=== PATIENT | female | born 1955 | race Caucasian/White ===

== ENCOUNTER → 2016-08-11 | Outpatient (CLI) | payer MEDICAID ==
--- NOTE | 2016-08-11 10:50 | REP ---
LUMBAR SPINE SERIES: Five views. HISTORY: Pain. Injury in a fall 2 days ago. FINDINGS: There is a dextroconvex rotoscoliotic curve in the upper lumbar spine. Associated degenerative disc disease is seen in the lumbar levels most pronounced at L3-4, L2-3 and L1-2. There are some discogenic spurs in the lower thoracic levels. Narrowing and spur formation is seen at the L5-S1 disc level. Lumbar vertebral body heights are preserved. No fracture or collapse is seen. Pedicles and posterior elements are intact. No evidence of spondylolysis or spondylolisthesis is seen. No bony destructive lesion is appreciated. Psoas margins are symmetric. The sacrum and SI joints are intact. IMPRESSION: Degenerative disc disease and dextroconvex lumbar scoliosis. Osteoarthritic facet changes are noted at L5-S1 bilaterally. No traumatic abnormality noted. Signed by Delmer Vaz MD 08/11/2016 12:18 P
--- NOTE | 2016-08-11 10:57 | REP ---
THORACIC SPINE SERIES: Three views. HISTORY: Pain. FINDINGS: Thoracic vertebral body heights are preserved. Alignment is normal. No fracture or collapse is seen. No paravertebral soft-tissue mass or swelling is seen. Pedicles and posterior elements are intact. There is diffuse degenerative disc spurring. Swimmers lateral view shows degenerative disc disease in the cervical spine as well. IMPRESSION: Diffuse degenerative disc changes. No acute bony abnormality. Signed by Delmer Vaz MD 08/11/2016 12:18 P
== END ==
LOC: M WUC 09:42
PROVIDERS: ATTEND Physician Assistant
DX: M51.36 Other intervertebral disc degeneration, lumbar region (principal); M41.26 Other idiopathic scoliosis, lumbar region; M47.817 Spondylosis without myelopathy or radiculopathy, lumbosacral region; M51.34 Other intervertebral disc degeneration, thoracic region; S29.012A Strain of muscle and tendon of back wall of thorax, initial encounter; X58.XXXA Exposure to other specified factors, initial encounter; Y92.89 Other specified places as the place of occurrence of the external cause; Y93.89 Activity, other specified; Y99.8 Other external cause status

== ENCOUNTER → 2020-11-26 | Outpatient (CLI) | payer MEDICAID, OTHER ==
--- NOTE | 2020-11-26 16:49 | REP ---
INDICATION: UNSP INJURY OF SHOULDER AND UPPER ARM, UNSP ARM, INIT ENCNTR. COMPARISON: None. TECHNIQUE: Three views of the right shoulder were performed. FINDINGS: The acromioclavicular and glenohumeral relationships are within normal limits. There is no acute fracture or destructive osseous lesion. IMPRESSION: Within normal limits <Electronically signed by Aroldo Champion > 11/26/20 [id number]
== END ==
LOC: M RAD 16:17
PROVIDERS: ATTEND Physician Assistant Medical
DX: S49.90XA Unspecified injury of shoulder and upper arm, unspecified arm, initial encounter (principal)

== ENCOUNTER 2020-11-29 09:08 | Emergency (ER) | payer MEDICAID, OTHER ==
[~2020-11-29] VITALS: Ht 160 cm; Wt 55.7 kg
[2020-11-29 09:10] VITALS: BP 134/74
[2020-11-29] MEDS ORDERED: VENL75CA47 (09:18)
[2020-11-29] MEDS ORDERED: VENL150C43 (09:18)
[2020-11-29] MEDS ORDERED: CLON0.5T2 (09:18)
[2020-11-29] MEDS ORDERED: IBUP80TA (09:18)
--- OUTSIDE RECORDS SUMMARY | 2020-11-29 09:24 | CCD ---
Author Author [facility] Address Unknown Phone Unavailable Support Name Relationship Address Phone RE Next Of Kin Unknown Unavailable UE Next Of Kin Unknown Unavailable OLIVER MCKEON Next Of Kin [address] [place] [address] Re-disclosure Warning The records that you are about to access may contain information from federally-assisted alcohol or drug abuse programs. If such information is present, then the following federally mandated warning applies: This information has been disclosed to you from records protected by federal confidentiality rules (42 CFR part 2). The federal rules prohibit you from making any further disclosure of this information unless further disclosure is expressly permitted by the written consent of the person to whom it pertains or as otherwise permitted by 42 CFR part 2. A general authorization for the release of medical or other information is NOT sufficient for this purpose. The Federal rules restrict any use of the information to criminally investigate or prosecute any alcohol or drug abuse patient.The records that you are about to access may contain highly sensitive health information, the redisclosure of which is protected by Article 27-F of the [facility] Public Health law. If you continue you may have access to information: Regarding HIV / AIDS; Provided by facilities licensed or operated by the [facility] Office of Mental Health; or Provided by the [facility] Office for People With Developmental Disabilities. If such information is present, then the following [facility] mandated warning applies: This information has been disclosed to you from confidential records which are protected by state law. State law prohibits you from making any further disclosure of this information without the specific written consent of the person to whom it pertains, or as otherwise permitted by law. Any unauthorized further disclosure in violation of state law may result in a fine or custodial sentence or both. A general authorization for the release of medical or other information is NOT sufficient authorization for further disc losure. Family History Family Member Name Family Member Gender Family Member Status Date o f Status Description Data Source(s) Unknown Unknown Problem [facility] ([facility]) Encounters Encounter Providers Location Date Indications Data Source(s ) Outpatient 10/23/2020 02:50:15 PM EDT - 021 03:48:17 PM EDT [facility] ([facility]) Immunizations Vaccine Date Status Description Data Source(s) COVID-19 VACCINE Moderna 10/24/2020 12:00:00 AM EDT completed [place] Vaccine Series Complete: NOThis Data was Submitted to [facility] Via [employer]. Medications No Information Insurance Providers Payer name Policy type / Coverage type Policy ID Covered green party ID Covered green party's relationship to herrera Policy Herrera Plan Information [employer] [id number] Self [id number] [facility] [id number] SP [id number] [facility] [id number] SP [id number] [facility] COMMUNITY PLAN [facility] [id number] SP [id number] [facility] Health Maintenance Organization (O) [id number] Self [id number] [facility] [id number] SP [id number] [facility] MEDICAID [facility] [id number] S [id number] [facility] Health Maintenance Organization (HMO) [id number] Self [facility] COMMUNITY PLAN [facility] [id number] SP [id number] Problems, Conditions, and Diagnoses No Information Surgeries/Procedures No Information Results ID Date Data Source [id number] 10/23/2020 03:00:00 PM EDT [facility] Name Value Range Interpretation Code Description Data Minda rce(s) Supporting Document(s) SARS-CoV-2 RNA Resp Ql NUZHAT+probe NOT DETECTED [facility] This lab was ordered by NORMA villavicencio and reported by NORMA Mathews. Procedure Social History No Information
--- OUTSIDE RECORDS SUMMARY | 2020-11-29 11:21 | CCD ---
Author Author [facility] Address Unknown Phone Unavailable Support Name Relationship Address Phone RE Next Of Kin Unknown Unavailable UE Next Of Kin Unknown Unavailable OLIVER MCKEON Next Of Kin [address] [place] [address] Re-disclosure Warning The records that [...] is protected by Article 27-F of the [facility] Public Health law. If you continue you may have access to information: Regarding HIV / AIDS; Provided by facilities licensed or operated by the [facility] Office of Mental Health; or Provided by the [facility] Office for People With Developmental Disabilities. If such information is present, then the following [facility] mandated warning applies: This information has been [...] law may result in a fine or care home sentence or both. A general authorization for [...] EDT - 021 03:48:17 PM EDT [facility] ([facility]) Immunizations Vaccine Date Status Description Data Source(s) COVID-19 VACCINE Moderna 10/24/2020 12:00:00 AM EDT completed [facility] Vaccine Series Complete: NOThis Data was Submitted to [facility] Via [employer]. Medications No Information Insurance Providers Payer name Policy type / Coverage type Policy ID Covered alliance party ID Covered alliance party's relationship to herrera Policy Herrera Plan Information [employer] [id number] Self [id number] [facility] [id number] SP [id number] [facility] COMMUNITY PLAN [facility] [id number] SP [id number] [facility] COMMUNITY PLAN [facility] [id number] SP [id number] [facility] Health Maintenance Organization (O) [id number] [facility] [id number] SP [id number] [facility] MEDICAID [facility] [id number] S [id number] [facility] Health Maintenance Organization (HMO) [id number] Self [facility] COMMUNITY PLAN [facility] [id number] SP [id number] Problems, Conditions, and Diagnoses No Information Surgeries/Procedures No Information Results ID Date Data Source [id number] 10/23/2020 03:00:00 PM EDT [facility] Name Value Range Interpretation Code Description Data Minda rce(s) Supporting Document(s) SARS-CoV-2 RNA Resp Ql NUZHAT+probe NOT DETECTED [facility] This lab was ordered by NORMA villavicencio and reported by NORMA Mathews. Procedure Social History No Information
[2020-11-29] MEDS ORDERED: NAPR-837 PO (11:35)
== END 2020-11-29 12:18 | disposition home or self-care (01) ==
LOC: M ED 09:08
DX: M25.511 Pain in right shoulder (principal); F12.10 Cannabis abuse, uncomplicated; F17.200 Nicotine dependence, unspecified, uncomplicated; F41.1 Generalized anxiety disorder; Z88.8 Allergy status to other drugs, medicaments and biological substances

== ENCOUNTER → 2021-06-13 | Outpatient (CLI) | payer OTHER ==
[~2021-06-13] MED LIST: CLON0.5T2; IBUP80TA; NAPR-837 PO; VENL150C43; VENL75CA47
== END ==
LOC: M WHC 10:17
PROVIDERS: ATTEND Orthopaedic Surgery
DX: M54.50 Low back pain, unspecified (principal)

== ENCOUNTER → 2021-07-01 | Outpatient (CLI) | payer OTHER | LOC: M RAD 07:53 | PROVIDERS: ATTEND Orthopaedic Surgery | DX: M54.50 Low back pain, unspecified (principal) | CPT/HCPCS: 78315; A9503 ==

== ENCOUNTER 2021-08-12 10:39 | Outpatient (RCR) | payer OTHER | END 2021-08-14 | LOC: M PT 10:39 | PROVIDERS: ATTEND Orthopaedic Surgery | DX: M47.896 Other spondylosis, lumbar region (principal) ==

== ENCOUNTER 2025-01-12 08:03 | Emergency (ER) | payer MEDICAID, MEDICARE, OTHER, SELFPAY ==
[~2025-01-12] VITALS: Ht 160 cm; Wt 68.2 kg
[~2025-01-12 08:03] MED LIST changes: -CLON0.5T2; +CLON0.5T2 PO; -VENL150C43; +VENL150C43 PO
[2025-01-12] MEDS ORDERED: GABA-1171 PO (08:34)
[2025-01-12] MEDS: ONDANSETRON 4MG/2ML VIAL IV ONE (09:04)
[2025-01-12] MEDS: MORPHINE 4 MG/ML 1 ML VIAL IV ONE (09:05)
[2025-01-12] MEDS: KETOROLAC 30 MG/ML 1 ML VIAL IV ONE (10:20)
[2025-01-12] MEDS: NS (Normal Saline) 0.9% 1,000 ML IV SCH (10:29)
[2025-01-12] MEDS ORDERED: HOME MED LIST COMPLETE! XX SCH (10:50)
[2025-01-12] MEDS: KETAMINE HCL 200 MG/20 ML VIAL IV ONE (10:52)
[2025-01-12 12:05] VITALS: BP 157/84; TEMP 98.2; O2SAT 95
== END 2025-01-12 12:17 | disposition home or self-care (01) ==
LOC: M ED 08:03
DX: S43.014A Anterior dislocation of right humerus, initial encounter (principal); W01.198A Fall on same level from slipping, tripping and stumbling with subsequent striking against other object, initial encounter; F12.10 Cannabis abuse, uncomplicated; F10.10 Alcohol abuse, uncomplicated; F17.200 Nicotine dependence, unspecified, uncomplicated; Y92.009 Unspecified place in unspecified non-institutional (private) residence as the place of occurrence of the external cause; Y93.89 Activity, other specified; Y99.9 Unspecified external cause status; Z88.8 Allergy status to other drugs, medicaments and biological substances; Z79.899 Other long term (current) drug therapy
CPT/HCPCS: 23650; 73020; 73030; 93041; 94760; 96361; 96374; 96375; 99285; J1885; J2405